=== PATIENT | male | born 1995 | race African-American/Black ===

== ENCOUNTER 2021-06-27 18:03 | Emergency (ER) | payer OTHER ==
[~2021-06-27] VITALS: Ht 188 cm; Wt 68.2 kg
[2021-06-27] MEDS ORDERED: KETOROLAC TROMETHAMINE 10 MG TABLET PO ONE (19:30)
[2021-06-27] MEDS ORDERED: CEPH-558 PO (21:08)
[2021-06-27] MEDS ORDERED: DOXY-354 PO (21:08)
[2021-06-27] MEDS ORDERED: DOXYCYCLINE HYCLATE 100 MG TABLET PO ONE (21:15)
[2021-06-27 21:35] VITALS: BP 115/62
== END 2021-06-27 21:40 | disposition home or self-care (01) ==
LOC: EMS 18:05
DX: T81.49XA Infection following a procedure, other surgical site, initial encounter (principal)
CPT/HCPCS: 99283